=== PATIENT | male | born 1995 | race Caucasian/White ===

== ENCOUNTER 2016-11-08 20:53 | Emergency (ER) | payer MEDICAID, OTHER ==
[~2016-11-08] VITALS: Ht 185.4 cm; Wt 86.3 kg
[~2016-11-08 20:53] MED LIST: LORA-392 PO; TRAZ100T4 PO; ZOLO100T PO
[2016-11-08] MEDS ORDERED: LORazepam 2 MG TAB PO ONE (21:00)
--- NOTE | 2016-11-08 21:05 | PD ---
HPI Chief Complaint: anxiety/hyperventilation Time Seen by Provider: 21:00 Travel History International Travel<30 days: No Contact w/Intl Traveler<30days: No Traveled to known affect area: No History of Present Illness HPI The patient is a 21-year-old male that for the past 3 days has had brief hyperventilation spells but today, after a cardiac workout, he had significant anxiety/hyperventilation. He denies any chest pain. He denies any fever. The patient was on lorazepam, sertraline and trazodone but he discontinued it himself 6-8 months ago. PFS Past Medical History Anxiety: Yes Depression: Yes Diminished Hearing: No Immunizations Current: Yes (ALL UTD ) Social History Alcohol Use: No Tobacco Use: No Substance Use: No Allergies-Medications (Allergen,Severity, Reaction): Coded Allergies: No Known Allergies (Verified , 02/08/16) Reported Meds & Prescriptions Reported Meds & Active Scripts Active No Active Prescriptions or Reported Medications Review of Systems Except as stated in HPI: all other systems reviewed are Neg Physical Exam Narrative GENERAL: The patient is anxious, alert, oriented 3 in no physical distress. His vital signs show pulse rate of 109 with respirations of 28 and oximetry 100 % and blood pressure 138/71. SKIN: Focused skin assessment warm/dry. HEAD: Atraumatic. Normocephalic. EYES: Pupils equal and round. No scleral icterus. No injection or drainage. ENT: No nasal bleeding or discharge. Mucous membranes pink and moist. NECK: Trachea midline. No JVD. CARDIOVASCULAR: Regular rate and rhythm. No murmur appreciated. RESPIRATORY: No accessory muscle use. Clear to auscultation. Breath sounds equal bilaterally. GASTROINTESTINAL: Abdomen soft, non-tender, nondistended. Hepatic and splenic margins not palpable. MUSCULOSKELETAL: No obvious deformities. No clubbing. No cyanosis. No edema. The patient has carpal spasm but no pedal spasm. NEUROLOGICAL: Awake and alert. No obvious cranial nerve deficits. Motor grossly within normal limits. Normal speech. PSYCHIATRIC: The patient is anxious and hyperventilating; insight and judgment normal. Data Data Last Documented VS Vital Signs Date Time Temp Pulse Resp B/P Pulse Ox O2 Delivery O2 Flow Rate FiO2 11/08/16 21:34 76 18 100 Room Air 11/08/16 21:11 98.3 Orders Lorazepam (Ativan) (11/08/16 21:00) Electrocardiogram (11/08/16 21:07) [facility] Medical Decision Making Medical Screen Exam Complete: Yes Emergency Medical Condition: Yes Medical Record Reviewed: Yes Interpretation(s) The EKG is normal with a normal sinus rhythm of 82. Differential Diagnosis Anxiety hyperventilation, pneumothoraxunlikely, acute coronary syndromehighly unlikely, pulmonary embolushighly unlikely Narrative Course The patient has anxiety/hyperventilation. It is now 9:41 PM and the patient is calm and his vital signs are normal. He is no longer hyperventilating and his carpal spasm has resolved. Diagnosis Primary Impression: Anxiety hyperventilation Additional Impression: Noncompliance with medications Additional Instructions: You may wish to take some of your anxiety medications, possibly not all of them , to avoid these anxiety attacks. Follow-up with your primary care physician next week. Med/Other Pt SpecificInfo: No Change to Meds Scripts No Active Prescriptions or Reported Meds Disposition: 01 DISCHARGE HOME Condition: Stable Wes Caruso MD Nov 08, 2016 21:05 Wes Caruso MD Nov 08, 2016 21:05
[2016-11-08 21:11] VITALS: PULSE 109; RESP 28; TEMP 98.3; O2SAT 100
[2016-11-08 21:34] VITALS: PULSE 76; RESP 18; O2SAT 100
[2016-11-08 21:40] VITALS: BP 138/71; PULSE 63; RESP 18; O2SAT 99
--- NOTE | 2016-11-09 13:45 | EKG ---
Date Performed: 11/08/2016 Time Performed: 21:02:16 PTAGE: 21 years EKG: Sinus rhythm Normal ECG NO PREVIOUS TRACING DOCTOR: Alan Burgos Interpretating Date/Time 11/09/2016 13:41:38
== END 2016-11-08 22:18 | disposition home or self-care (01) ==
LOC: PHED 20:53
DX: R06.4 Hyperventilation (principal); F41.9 Anxiety disorder, unspecified; Z91.14 Patient's other noncompliance with medication regimen; Z86.59 Personal history of other mental and behavioral disorders
CPT/HCPCS: 93005

== ENCOUNTER 2017-06-24 12:23 | Emergency (ER) | payer OTHER ==
[~2017-06-24] VITALS: Ht 185.4 cm; Wt 81.5 kg
[2017-06-24 12:39] VITALS: BP 138/75; PULSE 93; RESP 18; TEMP 98.1; O2SAT 98
--- NOTE | 2017-06-24 12:44 | PD ---
HPI Chief Complaint: Abdominal Pain Time Seen by Provider: 12:44 Travel History International Travel<30 days: No Contact w/Intl Traveler<30days: No Traveled to known affect area: No History of Present Illness HPI 22-year-old male came to the emergency room with history of epigastric abdominal pain that has been going on for past 3 weeks. It's progressively worsening. Last night he was up and vomited 4-5 times. Vomit has been nonbilious. He says the pain is worse upon movement. Currently the pain is 2 out of 10. No history of diarrhea. He's never had this kind of pain in the past prior to this. Vital signs were otherwise stable. His appetite has gone down. He was seen about a week and a half ago at an urgent care where he had ultrasound and blood test done and was told that his liver and gallbladder was inflamed. [facility] Past Medical History Narrative Medical List of his past medical, surgical, social and family history is reviewed from the nursing note. Anxiety: Yes Depression: Yes Diminished Hearing: No Immunizations Current: Yes (ALL UTD ) Social History Alcohol Use: Yes (COUPLE TIMES PER MONTH) Tobacco Use: No Substance Use: No Allergies-Medications (Allergen,Severity, Reaction): Coded Allergies: doxycycline (Verified Adverse Reaction, Unknown, ESOPHAGITIS, 06/25/17) Comments List of his allergies reviewed from the nursing note. Reported Meds & Prescriptions Reported Meds & Active Scripts Active Protonix (Pantoprazole Sodium) 40 Mg Tab 40 Mg PO DAILY Reported Sucralfate 1 Gram Tab 1 Gm PO QID on empty stomach Narrative Medication List of his home medications reviewed from the nursing note. Review of Systems Except as stated in HPI: all other systems reviewed are Neg Gastrointestinal: Positive: Nausea, Vomiting, Abdominal Pain Physical Exam Narrative GENERAL: Awake, alert, moderate distress SKIN: Focused skin assessment warm/dry. HEAD: Atraumatic. Normocephalic. EYES: Pupils equal and round. No scleral icterus. Bilateral conjunctival injection right worse than left ENT: No nasal bleeding or discharge. Mucous membranes pink and moist. NECK: Trachea midline. No JVD. CARDIOVASCULAR: Regular rate and rhythm. No murmur appreciated. RESPIRATORY: No accessory muscle use. Clear to auscultation. Breath sounds equal bilaterally. GASTROINTESTINAL: Abdomen soft, epigastric tenderness, nondistended. Hepatic and splenic margins not palpable. MUSCULOSKELETAL: No obvious deformities. No clubbing. No cyanosis. No edema. NEUROLOGICAL: Awake and alert. No obvious cranial nerve deficits. Motor grossly within normal limits. Normal speech. PSYCHIATRIC: Appropriate mood and affect; insight and judgment normal. Data Data Last Documented VS Orders Orders Complete Blood Count With Diff (06/24/17 12:33) Comprehensive Metabolic Panel (06/24/17 12:33) Urinalysis - C+S If Indicated (06/24/17 12:33) Iv Access Insert/Monitor (06/24/17 12:33) Oxygen Administration (06/24/17 12:33) Oximetry (06/24/17 12:33) Lipase (06/24/17 12:33) Ct Abd/Pel W Iv Contrast(Rout) (06/24/17 ) Morphine Inj (Morphine Inj) (06/24/17 13:00) Ondansetron Inj (Zofran Inj) (06/24/17 13:00) Sodium Chlor 0.9% 1000 Ml Inj (Ns 1000 M (06/24/17 13:00) Oral Contrast - Adult (06/24/17 12:57) Diatrizoate Liq ( Gastroview Liq) (06/24/17 13:03) Iohexol 350 Inj (Omnipaque 350 Inj) (06/24/17 14:32) Urine Culture (06/24/17 14:55) Pantoprazole (Protonix) (06/24/17 15:30) Ed Discharge Order (06/24/17 15:31) Labs Laboratory Tests Test 06/24/17 12:45 06/24/17 14:55 White Blood Count 7.7 TH/MM3 Red Blood Count 5.78 MIL/MM3 Hemoglobin 15.7 GM/DL Hematocrit 46.8 % Mean Corpuscular Volume 81.1 FL Mean Corpuscular Hemoglobin 27.1 PG Mean Corpuscular Hemoglobin Concent 33.4 % Red Cell Distribution Width 12.7 % Platelet Count 205 TH/MM3 Mean Platelet Volume 7.0 FL Neutrophils (%) (Auto) 62.8 % Lymphocytes (%) (Auto) 15.9 % Monocytes (%) (Auto) 19.5 % Eosinophils (%) (Auto) 1.6 % Basophils (%) (Auto) 0.2 % Neutrophils # (Auto) 4.9 TH/MM3 Lymphocytes # (Auto) 1.2 TH/MM3 Monocytes # (Auto) 1.5 TH/MM3 Eosinophils # (Auto) 0.1 TH/MM3 Basophils # (Auto) 0.0 TH/MM3 CBC Comment DIFF FINAL Differential Comment Blood Urea Nitrogen 12 MG/DL Creatinine 1.20 MG/DL Random Glucose 101 MG/DL Total Protein 6.4 GM/DL Albumin 2.6 GM/DL Calcium Level 8.2 MG/DL Alkaline Phosphatase 47 U/L Aspartate Amino Transf (AST/SGOT) 13 U/L Alanine Aminotransferase (ALT/SGPT) 11 U/L Total Bilirubin 0.6 MG/DL Sodium Level 139 MEQ/L Potassium Level 4.0 MEQ/L Chloride Level 106 MEQ/L Carbon Dioxide Level 25.8 MEQ/L Anion Gap 7 MEQ/L Estimat Glomerular Filtration Rate 76 ML/MIN Lipase 155 U/L Urine Collection Type CLEAN CATCH Urine Color YELLOW Urine Turbidity CLEAR Urine pH 6.0 Urine Specific [place] 1.015 Urine Protein TRACE mg/dL Urine Glucose (UA) NEG mg/dL Urine Ketones NEG mg/dL Urine Occult Blood NEG Urine Nitrite NEG Urine Bilirubin NEG Urine Leukocyte Esterase NEG Urine RBC 0-3 /hpf Urine WBC 9-14 /hpf Urine WBC Clumps FEW Urine Squamous Epithelial Cells 0-5 /hpf Microscopic Urinalysis Comment CULTURE INDICATED Urine Collection Time 14:55 MDM Medical Decision Making Medical Screen Exam Complete: Yes Emergency Medical Condition: Yes Medical Record Reviewed: Yes Differential Diagnosis Acute pancreatitis, acute gastritis, abdominal pain NOS Narrative Course 2:[address] scan to be done and resulted. Blood test results were done and within acceptable limits. Patient was given IV fluid, pain medication and nausea medicine. Liver function tests were within normal limit as well. 3:[address] scan shows an elongated appendix with no surrounding stranding and the area goes all the way to the tip of the appendix. Moreover patient has no right lower quadrant tenderness or guarding. I went back and reassessed him. He says he feels much better. He still had some epigastric tenderness. However I'm comfortable discharging him home at this point. I gave him a dose of protonix. Procedures EKG Prior to Arrival: No Diagnosis Primary Impression: Acute gastritis Qualified Codes: K29.00 - Acute gastritis without bleeding Additional Impression: Abdominal pain Qualified Codes: R10.13 - Epigastric pain Referrals: Primary Care Physician 3 days Additional Instructions: Please take the medication as per the prescription direction. Certain dietary restrictions are required. Do not eat or drink any acidic diet such as those that contain lemon, lying, oranges, tomatoes, strawberries etc. if symptoms do not improve in spite of taking medications for a few days follow-up with your primary care. Return to the ER if condition worsens or any other new concerns. Med/Other Pt SpecificInfo: Prescription(s) given Scripts Pantoprazole (Protonix) 40 Mg Tab 40 MG PO DAILY for Reflux, #30 TAB 0 Refills Prov: Rosibel Phelan MD 06/24/17 Disposition: 01 DISCHARGE HOME Condition: Stable Rosibel Phelan MD Jun 24, 2017 12:44
[2017-06-24 12:56] LABS: AUTOMATED NEUTROPHIL # 4.9 TH/MM3 (1.8-7.7); BASOPHIL % 0.2 % (0.0-2.0); EOSINOPHIL # 0.1 TH/MM3 (0-0.4); EOSINOPHIL % 1.6 % (0.0-4.0); HEMATOCRIT 46.8 % (39.0-51.0); HEMO FLAGS DIFF FINAL; LYMPH % 15.9 % (9.0-44.0); LYMPHOCYTE # 1.2 TH/MM3 (1.0-4.8); MEAN CELL VOLUME 81.1 FL (80.0-100.0); MEAN CORPUSCULAR HEMOGLOBIN 27.1 PG (27.0-34.0); MEAN CORPUSCULAR HGB CONC 33.4 % (32.0-36.0); MONO % 19.5 % (0.0-8.0); NEUT % 62.8 % (16.0-70.0); PLATELET COUNT 205 TH/MM3 (150-450); RED BLOOD COUNT 5.78 MIL/MM3 (4.50-5.90); RED CELL DISTRIBUTION WIDTH 12.7 % (11.6-17.2); WHITE BLOOD COUNT 7.7 TH/MM3 (4.0-11.0)
[2017-06-24] MEDS ORDERED: MORPHINE SULFATE 4 MG/ML INJ IV PUSH ONE (13:00)
[2017-06-24] MEDS ORDERED: ONDANSETRON HCL 4 MG/2 ML VIAL IV PUSH ONE (13:00)
[2017-06-24] MEDS ORDERED: SODIUM CHLOR 0.9% 1000 ML INJ 1,000 ML IV ONE (13:00)
[2017-06-24] MEDS ORDERED: DIATRIZOATE MEGLUM/DIATRIZOATE SOD 9 ML CUP ONE (13:03)
[2017-06-24 13:11] VITALS: BP 138/75; PULSE 75; RESP 18; O2SAT 98
[2017-06-24 13:12] LABS: CHLORIDE 106 MEQ/L (98-107); SODIUM (NA) 139 MEQ/L (136-145)
[2017-06-24 13:17] LABS: ANION GAP 7 MEQ/L (5-15); BICARBONATE 25.8 MEQ/L (21.0-32.0)
[2017-06-24 13:18] LABS: BLOOD UREA NITROGEN 12 MG/DL (7-18)
[2017-06-24 13:20] LABS: ALT (GPT) 11 U/L (12-78); AST (GOT) 13 U/L (15-37); GLOMERULAR FILTRATION RATE 76 ML/MIN (>89)
[2017-06-24 13:22] LABS: TOTAL BILIRUBIN ADULT 0.6 MG/DL (0.2-1.0)
[2017-06-24 13:23] LABS: ALKALINE PHOSPHATASE 47 U/L (45-117)
[2017-06-24] MEDS ORDERED: IOHEXOL 350 MG/ML 10 ML VIAL (for RAD DIAG) IVCONTRAST ONE (14:32)
[2017-06-24 14:43] VITALS: BP 128/66; PULSE 77; RESP 18; O2SAT 98
--- NOTE | 2017-06-24 14:55 | RADRPT ---
EXAM DATE/TIME: 06/24/2017 14:26 [facility] COMPARISON: CT ABDOMEN & PELVIS W CONTRAST, August 09, 2009, 2:52. INDICATIONS : Epigastric pain with nausea and vomiting. IV CONTRAST: 95 cc Omnipaque 350 (iohexol) IV ORAL CONTRAST: Prescribed oral contrast ingested. RADIATION DOSE: 9.57 CTDIvol (mGy) MEDICAL HISTORY : None SURGICAL HISTORY : Orthopedic surgery. ENCOUNTER: Initial ACUITY: 2 weeks PAIN SCALE: 5/10 LOCATION: upper quadrant TECHNIQUE: Volumetric scanning of the abdomen and pelvis was performed. Using automated exposure control and ad justment of the mA and/or kV according to patient size, radiation dose was kept as low as reasonably achievable to obtain optimal diagnostic quality images. DICOM format image data is available electro nically for review and comparison. FINDINGS: LOWER LUNGS: The visualized lower lungs are clear. LIVER: Homogeneous density without lesion. There is no dilation of the biliary tree. No calcified gallston es. SPLEEN: Mild splenomegaly measuring up to 14.6 cm. PANCREAS: Within normal limits. KIDNEYS: Normal in size and shape. There is no mass, stone or hydronephrosis. ADRENAL GLANDS: Within normal limits. VASCULAR: There is no aortic aneurysm. BOWEL/MESENTERY: There is subtle stable prominence of the proximal appendix which measures up to 8 mm there is however no significant inflammatory stranding in the periappendiceal region and air is noted to the appendix tip. Bowel otherwise appears unremarkable. No free fluid or free air. ABDOMINAL WALL: Within normal limits. RETROPERITONEUM: There is no lymphadenopathy. BLADDER: No wall thickening or mass. REPRODUCTIVE: Within normal limits. INGUINAL: There is no lymphadenopathy or hernia. MUSCULOSKELETAL: Within normal limits for patient age. CONCLUSION: 1. There is subtle but stable prominence of the proximal appendix which measures up to 8 mm (upper li mits for normal is 7 mm). There is air extending to the tip of the appendix and no significant periap pendiceal inflammatory change. Findings are nonspecific but likely do not reflect appendicitis. If th ere is significant clinical concern regarding appendicitis, short term follow up exam is recommended. 2. Otherwise, no acute CT findings in the abdomen or pelvis. 3. Stable mild splenomegaly. Jurgen Torres MD on June 24, 2017 at 14:47 Board Certified Radiologist. This report was verified electronically.
[2017-06-24 15:00] LABS: BLOOD, URINE NEG (NEG); GLUCOSE,URINE NEG (NEG); KETONE, URINE NEG (NEG); NITRITE,URINE NEG (NEG)
[2017-06-24 15:04] LABS: METHOD OF COLLECTION CLEAN CATCH
[2017-06-24 15:05] LABS: COMMENT (UR) CULTURE INDICATED; CULTURE IF INDICATED CULTURE INDICATED; RBC, URINE 0-3 /hpf (0-3); SQUAMOUS EPITHELIAL CELL URINE 0-5 /hpf (0-5); URINE COLOR YELLOW (YELLW/STRAW)
[2017-06-24] MEDS ORDERED: PROT40TA PO (15:30)
[2017-06-24] MEDS ORDERED: PANTOPRAZOLE SOD 40 MG DELAYED RELEASE TAB PO ONE (15:30)
[2017-06-25] MEDS ORDERED: SUCR1TAB PO (20:28)
== END 2017-06-24 15:37 | disposition home or self-care (01) ==
LOC: PHED 12:23
DX: K29.00 Acute gastritis without bleeding (principal); R10.13 Epigastric pain; F32.9 Major depressive disorder, single episode, unspecified; R82.99 Other abnormal findings in urine; Z79.899 Other long term (current) drug therapy
CPT/HCPCS: 74177; 80053; 81001; 83690; 85025; 87086; 96361; 96374; 96375; 99285; J2270; J2405; J7030; Q9963; Q9967

== ENCOUNTER 2017-06-25 19:37 | Emergency (ER) | payer OTHER ==
[~2017-06-25] VITALS: Ht 185.4 cm; Wt 82.0 kg
[~2017-06-25 19:37] MED LIST changes: -LORA-392 PO; +PROT40TA PO; -TRAZ100T4 PO; -ZOLO100T PO
[2017-06-25 19:55] VITALS: BP 134/69; PULSE 80; RESP 16; TEMP 98.4; O2SAT 98
[2017-06-25] MEDS ORDERED: SUCR1TAB PO (20:28)
[2017-06-25 21:00] VITALS: BP 113/66; PULSE 66; RESP 14; O2SAT 98
--- NOTE | 2017-06-25 21:16 | PD ---
HPI Chief Complaint: Abdominal Pain Time Seen by Provider: 20:24 Travel History International Travel<30 days: No Contact w/Intl Traveler<30days: No Traveled to known affect area: No History of Present Illness HPI This patient complains of epigastric discomfort. He was seen here yesterday for the same thing. Extensive workup was negative for emergent problem. He has an appointment with the GI physician tomorrow. Severity is moderate. He said he noticed some blood in his stool. He does have heartburn at times. He has a history of pill-induced esophagitis that was 6 months ago. Symptoms have no alleviating factors. PFSH Past Medical History Anxiety: Yes Depression: Yes Diminished Hearing: No Immunizations Current: Yes (ALL UTD ) Tetanus Vaccination: < 5 Years Social History Alcohol Use: Yes (COUPLE TIMES PER MONTH) Tobacco Use: No Substance Use: No Allergies-Medications (Allergen,Severity, Reaction): Coded Allergies: doxycycline (Verified Adverse Reaction, Unknown, ESOPHAGITIS, 06/25/17) Reported Meds & Prescriptions Reported Meds & Active Scripts Active Protonix (Pantoprazole Sodium) 40 Mg Tab 40 Mg PO DAILY Reported Sucralfate 1 Gram Tab 1 Gm PO QID on empty stomach Review of Systems General / Constitutional: No: Fever HENT: No: Headaches Cardiovascular: No: Chest Pain or Discomfort Respiratory: No: Cough Gastrointestinal: Positive: Abdominal Pain Physical Exam Narrative GENERAL: Well-nourished, well-developed patient in no apparent distress. SKIN: Focused skin assessment reveals no rash and nodules. Skin is Warm and dry. HEAD: Atraumatic. Normocephalic. EYES: Pupils equal and round. Has bilateral conjunctival injection with no drainage. ENT: No nasal bleeding or discharge. Mucous membranes pink and moist. NECK: Trachea midline. No JVD. CARDIOVASCULAR: Regular rate and rhythm. No murmur appreciated. RESPIRATORY: No accessory muscle use. Clear to auscultation. Breath sounds equal bilaterally. GASTROINTESTINAL: Abdomen soft, non-tender, nondistended. Hepatic and splenic margins not palpable. MUSCULOSKELETAL: No obvious deformities. No clubbing. No cyanosis. No edema. NEUROLOGICAL: Awake and alert. No obvious cranial nerve deficits. Motor grossly within normal limits. Normal speech. PSYCHIATRIC: Appropriate mood and affect; insight and judgment normal. Data Data Last Documented VS Vital Signs Date Time Temp Pulse Resp B/P (MAP) Pulse Ox O2 Delivery O2 Flow Rate FiO2 06/25/17 19:55 98.4 80 16 134/69 (90) 98 Orders Orders Ed Discharge Order (06/25/17 21:11) [facility] Medical Decision Making Medical Screen Exam Complete: Yes Emergency Medical Condition: Yes Medical Record Reviewed: Yes Differential Diagnosis Gastric ulcer, esophagitis, gastritis Narrative Course I have reviewed the patient's electronic medical record. Reviewed his visit an extensive workup from yesterday and labs and abdominal CT Patient's abdomen is soft and benign and nontender Vitals are normal She has a GI follow-up tomorrow. I don't think repeating that extensive workup is indicated. I think endoscopy May be his best bet at official diagnosis. Diagnosis Primary Impression: Epigastric pain Additional Impression: Dyspepsia Additional Instructions: Follow-up with GI physician tomorrow as scheduled Med/Other Pt SpecificInfo: Other Disposition: 01 DISCHARGE HOME Condition: Stable García Murrieta MD Jun 25, 2017 21:15
== END 2017-06-25 21:25 | disposition home or self-care (01) ==
LOC: PHED 19:37
DX: R10.13 Epigastric pain (principal)
CPT/HCPCS: 99281

== ENCOUNTER → 2017-12-04 | Outpatient (CLI) | payer OTHER ==
[~2017-12-04] MED LIST changes: +SUCR1TAB PO
[2017-12-05 16:50] LABS: APPEARANCE Normal; HEAD SHAPE ABNORMAL 9.5 %; MOTILE/EJACULATE 0 x10(6) (>=9.0); MOTILE/mL 0 x10(6) (>=6.0); MOTILITY 0 % (>=40); SEMEN VOLUME 5.5 mL (>=1.5); SPERM/ML 54.6 x10(6) (>=15.0); TAIL ABNORMAL 54.5 %
== END ==
LOC: CLAB 10:07
PROVIDERS: ATTEND Urology
DX: N46.01 Organic azoospermia (principal)
CPT/HCPCS: 89322